=== PATIENT | male | born 1985 | race Caucasian/White ===

== ENCOUNTER 2023-10-09 14:26 | Emergency (ER) | payer MEDICAID ==
[~2023-10-09] VITALS: Ht 182.9 cm; Wt 72.7 kg
[2023-10-09 15:22] VITALS: BP 128/75; PULSE 112; RESP 16; TEMP 98.5; O2SAT 98
== END 2023-10-09 15:24 | disposition home or self-care (01) ==
LOC: ER 14:27
DX: U07.1 COVID-19 (principal)
CPT/HCPCS: 36415; 87502; 87503; 87811; 99283